=== PATIENT | female | born 1980 | race Caucasian/White ===

== ENCOUNTER 2017-09-13 21:16 | Emergency (ER) | payer BC ==
[~2017-09-13] VITALS: Ht 160 cm; Wt 72.6 kg
[2017-09-13 21:26] VITALS: BP_SYST 142
[2017-09-13] MEDS ORDERED: IBUPROFEN 800 MG TABLET PO ONE (22:15)
[2017-09-13 23:00] VITALS: BP_SYST 131
== END 2017-09-13 23:00 | disposition home or self-care (01) ==
LOC: SED 21:16
DX: S92.354A Nondisplaced fracture of fifth metatarsal bone, right foot, initial encounter for closed fracture (principal); M25.561 Pain in right knee; M25.562 Pain in left knee; R03.0 Elevated blood-pressure reading, without diagnosis of hypertension; W19.XXXA Unspecified fall, initial encounter; Y93.02 Activity, running; Y92.89 Other specified places as the place of occurrence of the external cause; Y99.8 Other external cause status
CPT/HCPCS: 73564; 99284